=== PATIENT | female | born 1965 | race Caucasian/White ===

== ENCOUNTER 2018-07-25 03:47 | Emergency (ER) | payer OTHER, SELFPAY ==
[~2018-07-25] VITALS: Ht 167.6 cm; Wt 92.0 kg
[2018-07-25] MEDS ORDERED: ALBUTEROL INH (04:08)
[2018-07-25 04:53] LABS: BASOPHILS # (AUTO) 0.04 x10^3/uL (0-0.1); BASOPHILS % (AUTO) 0 % (0-1); EOSINOPHILS # (AUTO) 0.01 x10^3/uL (0-0.4); EOSINOPHILS % (AUTO) 0 % (1-7); LYMPHOCYTES # (AUTO) 1.42 x10^3/uL (1-3.4); LYMPHOCYTES % (AUTO) 16 % (22-44); MD NO; MEAN CORPUSCULAR HEMOGLOBIN 29.9 pg (27.0-34.8); MEAN CORPUSCULAR VOLUME 90.8 fL (80-100); MEAN PLATELET VOLUME 8.6 fL (7.4-10.4); MONOCYTES % (AUTO) 7 % (2-9); NEUTROPHILS # (AUTO) 6.82 x10^3/uL (1.8-6.8); NEUTROPHILS % (AUTO) 77 % (42-75); PLATELET COUNT 258 x10^3/uL (130-400); RED BLOOD COUNT 4.46 x10^6/uL (3.82-5.3); RED CELL DISTRIBUTION WIDTH 14.5 % (9.6-15.2)
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
[2018-07-25 05:03] LABS: ALANINE AMINOTRANSFERASE 34 U/L (12-78); ALBUMIN 3.5 g/dL (3.4-5.0); ANION GAP 9 mmol/L (5-15); CALCIUM 8.4 mg/dL (8.5-10.1); CHLORIDE 113 mmol/L (98-107); CREATININE 0.86 mg/dL (0.55-1.02)
[2018-07-25 05:06] LABS: ALKALINE PHOSPHATASE 79 U/L (45-117); BILIRUBIN,TOTAL 0.2 mg/dL (0.2-1.0); TOTAL PROTEIN 6.9 g/dL (6.4-8.2)
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
[2018-07-25 06:11] VITALS: BP 103/69
== END 2018-07-25 06:15 | disposition home or self-care (01) ==
LOC: ED 06:00
DX: T76.21XA Adult sexual abuse, suspected, initial encounter (principal); F10.120 Alcohol abuse with intoxication, uncomplicated; J45.909 Unspecified asthma, uncomplicated; Z72.9 Problem related to lifestyle, unspecified; Z91.14 Patient's other noncompliance with medication regimen; Z63.8 Other specified problems related to primary support group; Z75.9 Unspecified problem related to medical facilities and other health care; Y90.9 Presence of alcohol in blood, level not specified; Y04.8XXA Assault by other bodily force, initial encounter; Y93.89 Activity, other specified; Y92.89 Other specified places as the place of occurrence of the external cause; Y99.8 Other external cause status
CPT/HCPCS: 36415; 80053; 80307; 85025; 99283